=== PATIENT | male | born 1975 | race African-American/Black ===

== ENCOUNTER 2022-02-18 23:45 | Emergency (ER) | payer OTHER ==
[2022-02-19 00:25] LABS: HEMOGLOBIN 14.9 gm/dl (14.0-17.5); RED BLOOD COUNT 4.98 M/UL (4.20-5.50); WHITE BLOOD COUNT 5.9 K/UL (4.5-11.0)
[2022-02-19 01:19] LABS: BUN/CREATININE RATIO 13 (0-10)
[2022-02-19] MEDS ORDERED: CYCLOBENZAPRINE10 MG PO (03:33)
== END 2022-02-19 04:13 | disposition home or self-care (01) ==
LOC: ER1 23:45
PROVIDERS: Physician Assistant
DX: R07.89 Other chest pain (principal)
CPT/HCPCS: 71045; 80053; 82550; 82553; 84484; 85025; 85379; 93005; 96374; 99285; J1885